=== PATIENT | female | born 1940 | race Caucasian/White ===

== ENCOUNTER 2017-04-21 11:25 | Emergency (ER) | payer OTHER ==
[~2017-04-21] VITALS: Ht 157.5 cm; Wt 77.6 kg
[~2017-04-21 11:25] MED LIST: COL100 PO; LAC PO; LEVAQUIN750 MG PO; LISINOPRIL-HYDR1 TA2; METOPROLOL SUCC25 M1 PO; NEURONTIN100 MG PO
[2017-04-21 11:41] VITALS: BP 146/69
== END 2017-04-21 14:31 | disposition home or self-care (01) ==
LOC: ED 11:25
DX: S29.012A Strain of muscle and tendon of back wall of thorax, initial encounter (principal); I10 Essential (primary) hypertension; X58.XXXA Exposure to other specified factors, initial encounter; Y93.89 Activity, other specified; Y99.8 Other external cause status; Y92.89 Other specified places as the place of occurrence of the external cause
CPT/HCPCS: 72072; J1885